=== PATIENT | male | born 1990 | race Caucasian/White ===

== ENCOUNTER 2025-04-06 06:17 | Outpatient (CLI) | payer BC ==
[2025-04-06 07:24] LABS: Hematocrit 46.7 % (41.0-53.0); Hemoglobin 16.3 g/dL (13.5-17.5); Mean Corpuscular Hemoglobin 29.9 pg (28.0-32.0); Mean Corpuscular Volume 85.6 fL (80.0-100.0); Nucleated Red Blood Cells % 0.1 %
[2025-04-06 07:42] LABS: Urine Protein, UAD Negative (Negative)
[2025-04-06 07:51] LABS: Albumin 4.5 g/dL (3.2-4.8); Alkaline Phosphatase 51 U/L (46-116); Anion Gap 11 (5-15); BUN/Creatinine Ratio 19.1 (10.0-20.0); Blood Urea Nitrogen 17 mg/dL (9-23); Calcium 9.4 mg/dL (8.7-10.4); Carbon Dioxide 29 mmol/L (20-31); Magnesium 1.9 mg/dL (1.6-2.6); Potassium 4.1 mmol/L (3.5-5.1); Sodium 136 mmol/L (136-145); Total Protein 7.8 g/dL (5.7-8.2)
[2025-04-06 07:52] LABS: Bilirubin, Total 0.7 mg/dL (0.2-1.0); Cholesterol 187 mg/dL (< 200); HDL Cholesterol 41 mg/dL (40-59)
[2025-04-06 07:56] LABS: Alanine Aminotransferase 48 U/L (7-40); Chloride 96 mmol/L (98-107); Glucose 115 mg/dL (74-106); Triglycerides 381 mg/dL (< 150)
[2025-04-07 11:08] LABS: Free Thyroxine Index 2.2 (1.2-4.9)
== END 2025-04-06 17:00 | disposition home or self-care (01) ==
LOC: LAB 06:17
PROVIDERS: ATTEND Specialist
DX: I10 Essential (primary) hypertension (principal); E11.9 Type 2 diabetes mellitus without complications; E78.5 Hyperlipidemia, unspecified; E55.9 Vitamin D deficiency, unspecified; D51.9 Vitamin B12 deficiency anemia, unspecified; R53.83 Other fatigue; I49.3 Ventricular premature depolarization; N39.0 Urinary tract infection, site not specified
CPT/HCPCS: 36415; 80053; 80061; 81001; 82306; 82607; 83036; 83735; 84443; 85025